=== PATIENT | male | born 1985 | race Caucasian/White ===

== ENCOUNTER 2024-08-07 20:56 | Emergency (ER) | payer OTHER ==
[~2024-08-07] VITALS: Ht 175.3 cm; Wt 84.1 kg
[2024-08-07 21:01] VITALS: BP 129/86; TEMP 98.5
[2024-08-07] MEDS ORDERED: Tdap Vaccine 0.5 ML SYRINGE IM ONE (23:30)
[2024-08-07] MEDS ORDERED: Rabies Immune Globulin PF 300 UNITS/2 ML VIAL IM ONE (23:30)
[2024-08-07] MEDS ORDERED: Amoxicillin/Clavulanate K+ 875/125 MG TAB PO ONE (23:30)
[2024-08-08 00:17] VITALS: PULSE 64
[2024-08-08] MEDS ORDERED: AMOXICILLIN 8751 TAB PO (16:12)
== END 2024-08-08 00:18 | disposition home or self-care (01) ==
LOC: COL.ER 20:56
DX: S61.452A Open bite of left hand, initial encounter (principal); W53.11XA Bitten by rat, initial encounter